=== PATIENT | female | born 1990 | race Caucasian/White ===

== ENCOUNTER 2021-07-17 01:08 | Inpatient (IN) | payer MEDICAID ==
[2021-07-17] MEDS ORDERED: Scopolamine 1.5 MG Transdermal Patch TOP SCH (05:30)
[2021-07-17] MEDS ORDERED: Acetaminophen 500 MG Tab PO ONE (05:30)
[2021-07-17] MEDS ORDERED: Celecoxib 200 MG Cap PO SCH (05:30)
[2021-07-17] MEDS ORDERED: Dextrose 5%-Lactated Ringers 1,000 ML IV SCH (06:15)
[2021-07-17] MEDS ORDERED: cefOXitin 2 GM Vial ONE (06:40)
[2021-07-17] MEDS ORDERED: fentaNYL 250 MCG/5 ML SDV ONE ×2 (07:00→07:46)
[2021-07-17] MEDS ORDERED: Neostigmine Methylsulfate 1 MG/ML 5 ML Syringe ONE (07:01)
[2021-07-17] MEDS ORDERED: Ondansetron 4 MG/2 ML SDV ONE (07:01)
[2021-07-17] MEDS ORDERED: Dexamethasone 4 MG/ML SDV ONE (07:01)
[2021-07-17] MEDS ORDERED: Succinylcholine 200 MG/10 ML MDV ONE (07:01)
[2021-07-17] MEDS ORDERED: Glycopyrrolate 0.2 MG/ML 5 ML MDV ONE (07:01)
[2021-07-17] MEDS ORDERED: Rocuronium 50 MG/5 ML Vial ONE (07:01)
[2021-07-17] MEDS ORDERED: Propofol 200 MG/20 ML SDV ONE (07:01)
[2021-07-17] MEDS ORDERED: Lactated Ringers 1,000 ML ONE (07:06)
[2021-07-17] MEDS ORDERED: cefOXitin 2 GM in Sodium Chloride 0.9% 50 ML IV ONE (07:15)
[2021-07-17] MEDS ORDERED: Ketamine 500 MG/5 ML MDV IV SCH (07:30)
[2021-07-17] MEDS ORDERED: Ketamine 18 MG in Sodium Chloride 0.9% 19.82 ML IV SCH (07:30)
[2021-07-17] MEDS ORDERED: Labetalol 20 MG/4 ML Syringe ONE (07:58)
[2021-07-17] MEDS ORDERED: Ondansetron 4 MG/2 ML SDV IVPUSH ONE (09:20)
[2021-07-17] MEDS ORDERED: Cyclobenzaprine 10 MG Tab PO PRN (10:12)
[2021-07-17] MEDS: hydrOXYzine HCL 100 MG/2 ML SDV IM PRN ×2 (10:24→19:38)
[2021-07-17] MEDS: Metoclopramide 10 MG/2 ML SDV IVPUSH PRN ×2 (10:28→20:04)
[2021-07-17] MEDS ORDERED: Acetaminophen 500 MG Tab PO PRN (11:00)
[2021-07-17] MEDS ORDERED: oxyCODONE 5 MG Tab PO PRN (11:00)
[2021-07-17] MEDS ORDERED: HYDROmorphone 0.5 MG/0.5 ML Syringe IVPUSH PRN (11:00)
[2021-07-17] MEDS ORDERED: Labetalol 20 MG/4 ML Syringe IVPUSH PRN (11:00)
[2021-07-17] MEDS ORDERED: diphenhydrAMINE 50 MG/ML SDV IVPUSH PRN (11:00)
[2021-07-17] MEDS: HYDROmorphone 1 MG/ML Syringe IV PRN ×2 (11:17→15:22)
[2021-07-17] MEDS: Dextrose 5%-Lactated Ringers 1,000 ML IV SCH (12:12)
[2021-07-17] MEDS: cefOXitin 2 GM in Sodium Chloride 0.9% 50 ML IV SCH ×2 (13:21→20:04)
[2021-07-17] MEDS: Acetaminophen 500 MG Tab PO SCH ×2 (13:21→21:52)
[2021-07-17] MEDS: Sertraline 25 MG Tab PO SCH (13:21)
[2021-07-17] MEDS: Pantoprazole 40 MG Vial IVPUSH SCH (13:21)
[2021-07-17] MEDS: Ondansetron 4 MG/2 ML SDV IVPUSH PRN ×2 (15:23→19:21)
[2021-07-17] MEDS: MVI, Adult with Vitamin K 10 ML, Thiamine 200 MG, Zinc/Copper/Manganese/Selenium 1 ML i... IV SCH ×4 (15:25)
[2021-07-17] MEDS: Heparin Sodium 5,000 Units/ML Vial SUBCUT SCH (18:11)
[2021-07-17] MEDS: traMADol 50 MG Tab PO PRN (21:54)
[2021-07-18] MEDS: Dextrose 5%-Lactated Ringers 1,000 ML IV SCH ×2 (00:13→07:46)
[2021-07-18] MEDS: cefOXitin 2 GM in Sodium Chloride 0.9% 50 ML IV SCH ×3 (01:32→14:22)
[2021-07-18] MEDS ORDERED: Iopamidol 612 MG/ML 50 ML SDV PO ONE (03:52)
[2021-07-18] MEDS: traMADol 50 MG Tab PO PRN ×2 (04:24→15:19)
[2021-07-18] MEDS: Heparin Sodium 5,000 Units/ML Vial SUBCUT SCH ×2 (05:01→18:46)
[2021-07-18] MEDS: Acetaminophen 500 MG Tab PO SCH ×3 (05:44→21:18)
[2021-07-18] MEDS: SCOPOLAMINE PATCH CHECK TOP SCH (08:43)
[2021-07-18] MEDS: Sertraline 25 MG Tab PO SCH (08:43)
[2021-07-18] MEDS: Celecoxib 200 MG Cap PO SCH ×2 (08:43→21:18)
[2021-07-18] MEDS: Pantoprazole 40 MG Vial IVPUSH SCH (14:27)
[2021-07-18] MEDS: MVI, Adult with Vitamin K 10 ML, Thiamine 200 MG, Zinc/Copper/Manganese/Selenium 1 ML i... IV SCH ×4 (15:16)
[2021-07-19] MEDS: Dextrose 5%-Lactated Ringers 1,000 ML IV SCH (01:24)
[2021-07-19] MEDS: traMADol 50 MG Tab PO PRN ×2 (03:14→08:58)
[2021-07-19] MEDS: Acetaminophen 500 MG Tab PO SCH ×2 (05:31→14:11)
[2021-07-19] MEDS: Heparin Sodium 5,000 Units/ML Vial SUBCUT SCH (05:31)
[2021-07-19] MEDS: SCOPOLAMINE PATCH CHECK TOP SCH (08:54)
[2021-07-19] MEDS: Celecoxib 200 MG Cap PO SCH (08:54)
[2021-07-19] MEDS ORDERED: Cyanocobalamin (Vitamin B12) 1,000 MCG/ML SDV IM ONE (09:00)
[2021-07-19] MEDS: Sertraline 25 MG Tab PO SCH (09:01)
[2021-07-19] MEDS: Pantoprazole 40 MG Vial IVPUSH SCH (14:06)
== END 2021-07-19 14:05 | disposition home or self-care (01) | DRG 619 ==
LOC: JP.SDS 05:12 → JP.SDSSCHI 05:12 → EDSTATUS 07:15 → JP.MS 09:10
PROVIDERS: ADMIT Surgery; ATTEND Surgery
PROC: 0D164ZA Bypass Stomach to Jejunum, Percutaneous Endoscopic Approach (ICD-10-PCS; principal; 2021-07-17)
PROC: 0FB24ZX Excision of Left Lobe Liver, Percutaneous Endoscopic Approach, Diagnostic (ICD-10-PCS; 2021-07-17)
PROC: 0BQT4ZZ Repair Diaphragm, Percutaneous Endoscopic Approach (ICD-10-PCS; 2021-07-17)
PROC: 0DB64ZZ Excision of Stomach, Percutaneous Endoscopic Approach (ICD-10-PCS; 2021-07-17)
DX: E66.01 Morbid (severe) obesity due to excess calories (principal); K55.051 Focal (segmental) acute (reversible) ischemia of intestine, part unspecified; Z68.41 Body mass index [BMI] 40.0-44.9, adult; R16.0 Hepatomegaly, not elsewhere classified; K44.9 Diaphragmatic hernia without obstruction or gangrene; F32.A Depression, unspecified; F41.0 Panic disorder [episodic paroxysmal anxiety]; Z79.899 Other long term (current) drug therapy
CPT/HCPCS: 36415; 74240; 74240-26; 82947; 84703; 86850; 86900; 86901; 88305; 88307; 88313; A9270-GY; C9113; J0171; J0330; J0694; J1100; J1170; J1644; J2405; J2704; J2710; J2765; J2795; J3010; J3410; J3411; J3420; J3490; J7030; J7120; J7121; Q9967

== ENCOUNTER 2021-09-08 06:56 | Day surgery (SDC) | payer MEDICAID ==
[2021-09-08] MEDS ORDERED: Propofol 200 MG/20 ML SDV ONE (07:04)
[2021-09-08] MEDS ORDERED: fentaNYL 100 MCG/2 ML SDV ONE (07:04)
[2021-09-08] MEDS ORDERED: Midazolam 1 MG/ML 2 ML SDV ONE (07:04)
[2021-09-08] MEDS ORDERED: Dextrose 5%-Lactated Ringers 1,000 ML IV SCH (07:30)
[2021-09-08] MEDS ORDERED: Scopolamine 1.5 MG Transdermal Patch TOP SCH (07:30)
[2021-09-08] MEDS ORDERED: Lactated Ringers 1,000 ML IV ONE (07:49)
[2021-09-08] MEDS: Glycopyrrolate 0.2 MG/ML 2 ML SDV IVPUSH ONE ×2 (08:09→08:10)
[2021-09-08] MEDS ORDERED: MVI, Adult with Vitamin K 10 ML, Zinc/Copper/Manganese/Selenium 1 ML, Thiamine 200 MG i... IV ONE ×4 (08:30)
[2021-09-08] MEDS ORDERED: Cyanocobalamin (Vitamin B12) 1,000 MCG/ML SDV IM ONE (08:30)
[2021-09-08] MEDS: Potassium Phos in 0.9 % NaCl 15 MMOL in Premix Bag 1 BAG IV SCH ×6 (09:00→13:10)
== END 2021-09-08 15:30 | disposition home or self-care (01) ==
LOC: JP.SDS 06:56
PROVIDERS: ATTEND Surgery
DX: K91.89 Other postprocedural complications and disorders of digestive system (principal); R13.10 Dysphagia, unspecified
CPT/HCPCS: 36415; 43245; 80053; 81025; 85027; A9270; J2250; J2704; J3010; J3411; J3420; J3490; J7120

== ENCOUNTER 2021-12-12 06:26 | Inpatient (IN) | payer MEDICAID ==
[2021-12-12] MEDS ORDERED: Scopolamine 1.5 MG Transdermal Patch TOP SCH (07:00)
[2021-12-12] MEDS ORDERED: Acetaminophen 500 MG Tab PO ONE (07:00)
[2021-12-12] MEDS ORDERED: Celecoxib 200 MG Cap PO ONE (07:00)
[2021-12-12] MEDS ORDERED: Rocuronium 50 MG/5 ML Vial ONE (07:21)
[2021-12-12] MEDS ORDERED: Glycopyrrolate 0.2 MG/ML 5 ML MDV ONE (07:21)
[2021-12-12] MEDS ORDERED: Ondansetron 4 MG/2 ML SDV ONE (07:21)
[2021-12-12] MEDS ORDERED: Dexamethasone 4 MG/ML SDV ONE (07:21)
[2021-12-12] MEDS ORDERED: Propofol 200 MG/20 ML SDV ONE (07:21)
[2021-12-12] MEDS ORDERED: fentaNYL 250 MCG/5 ML SDV ONE (07:21)
[2021-12-12] MEDS ORDERED: Neostigmine Methylsulfate 1 MG/ML 5 ML Syringe ONE (07:21)
[2021-12-12] MEDS ORDERED: Succinylcholine 200 MG/10 ML MDV ONE (07:21)
[2021-12-12 07:34] LABS: ESTIMATED GFR 70 mL/min (>60)
[2021-12-12] MEDS ORDERED: cefOXitin 2 GM in Sodium Chloride 0.9% 50 ML IV ONE (08:00)
[2021-12-12] MEDS: Dextrose 5%-Lactated Ringers 1,000 ML IV SCH ×2 (08:21→16:00)
[2021-12-12] MEDS ORDERED: Ketamine 500 MG/5 ML MDV IV SCH (08:45)
[2021-12-12] MEDS ORDERED: Ropivacaine 36 ML, dexAMETHasone 8 MG, EPINEPHrine 0.4 MG, Sodium Chloride 0.9% 41.6 ML NERVRT SCH ×4 (08:45)
[2021-12-12] MEDS ORDERED: Ketamine 17 MG in Sodium Chloride 0.9% 19.83 ML IV SCH (08:45)
[2021-12-12] MEDS: Bupivacaine 0.5%/EPINEPHrine 1:200,000 50 ML MDV ONE ×2 (09:22→09:34)
[2021-12-12] MEDS ORDERED: Lidocaine 1% 20 ML MDV ONE (09:24)
[2021-12-12] MEDS ORDERED: fentaNYL 50 MCG/ML SDV IVPUSH ONE (10:08)
[2021-12-12] MEDS ORDERED: hydrOXYzine HCL 100 MG/2 ML SDV IM ONE (10:08)
[2021-12-12] MEDS ORDERED: Sertraline 25 MG Tab PO ONE (11:00)
[2021-12-12] MEDS: HYDROmorphone 2 MG Tab PO PRN ×3 (11:07→21:35)
[2021-12-12] MEDS ORDERED: Ondansetron 4 MG/2 ML SDV IVPUSH PRN (12:10)
[2021-12-12] MEDS ORDERED: MVI, Adult with Vitamin K 10 ML, Thiamine 200 MG, Zinc/Copper/Manganese/Selenium 1 ML i... IV ONE ×4 (13:00)
[2021-12-12] MEDS: Pantoprazole 40 MG Vial IVPUSH SCH (13:14)
[2021-12-12] MEDS: Cholecalciferol (Vitamin D3) 50,000 Unit Cap PO SCH (17:11)
[2021-12-12] MEDS: Cyanocobalamin (Vitamin B12) 1,000 MCG Tab PO SCH (17:13)
[2021-12-13] MEDS: HYDROmorphone 2 MG Tab PO PRN ×5 (01:13→23:24)
[2021-12-13] MEDS: Dextrose 5%-Lactated Ringers 1,000 ML IV SCH ×2 (01:27→19:30)
[2021-12-13] MEDS: Cyanocobalamin (Vitamin B12) 1,000 MCG Tab PO SCH (09:56)
[2021-12-13] MEDS: Sertraline 50 MG Tab PO SCH (09:57)
[2021-12-13] MEDS: VERIFY SCOP PATCH TOP SCH (09:59)
[2021-12-13] MEDS ORDERED: LACTATED RINGERS IV SCH (11:30)
[2021-12-13] MEDS ORDERED: MVI, Adult with Vitamin K 10 ML, Zinc/Copper/Manganese/Selenium 1 ML in Lactated Ringer... IV SCH ×3 (11:30)
[2021-12-13] MEDS ORDERED: DEXTROSE IV SCH (11:30)
[2021-12-13] MEDS ORDERED: POTASSIUM PHOSPHATES IV SCH (11:30)
[2021-12-13] MEDS: Magnesium Sulfate/Water 2 GM in Premix Bag 1 BAG IV SCH ×3 (12:35→23:24)
[2021-12-13] MEDS: Potassium Phos in 0.9 % NaCl 15 MMOL in Premix Bag 1 BAG IV SCH ×8 (12:43→21:52)
[2021-12-13] MEDS: Pantoprazole 40 MG Vial IVPUSH SCH (12:45)
[2021-12-13] MEDS ORDERED: Dextrose 5%-Lactated Ringers 1,000 ML IV SCH (13:45)
[2021-12-13] MEDS ORDERED: Tamsulosin 0.4 MG Cap.ER PO ONE (16:55)
[2021-12-13] MEDS ORDERED: Lactated Ringers 500 ML IV ONE (18:19)
[2021-12-13] MEDS: Tamsulosin 0.4 MG Cap.ER PO SCH (21:51)
[2021-12-14] MEDS: Dextrose 5%-Lactated Ringers 1,000 ML IV SCH ×3 (03:01→21:08)
[2021-12-14 05:23] LABS: ESTIMATED GFR 102 mL/min (>60)
[2021-12-14] MEDS: Magnesium Sulfate/Water 2 GM in Premix Bag 1 BAG IV SCH ×4 (06:07→23:56)
[2021-12-14] MEDS: HYDROmorphone 2 MG Tab PO PRN ×3 (07:29→21:11)
[2021-12-14] MEDS: Potassium Chloride 20 MEQ, Lidocaine 1% 2 ML in Sodium Chloride 0.9% 100 ML IV SCH ×3 (09:51→16:51)
[2021-12-14] MEDS: Docusate Sodium 100 MG Cap PO SCH ×2 (09:56→21:09)
[2021-12-14] MEDS: VERIFY SCOP PATCH TOP SCH ×2 (09:56→10:33)
[2021-12-14] MEDS: Cyanocobalamin (Vitamin B12) 1,000 MCG Tab PO SCH (09:56)
[2021-12-14] MEDS: Bisacodyl 5 MG Tab PO SCH ×3 (09:56→21:13)
[2021-12-14] MEDS: Sertraline 50 MG Tab PO SCH (09:57)
[2021-12-14] MEDS: Pantoprazole 40 MG Vial IVPUSH SCH (12:39)
[2021-12-14] MEDS: Cholecalciferol (Vitamin D3) 50,000 Unit Cap PO SCH (16:53)
[2021-12-14] MEDS: Tamsulosin 0.4 MG Cap.ER PO SCH (21:09)
[2021-12-15] MEDS: Dextrose 5%-Lactated Ringers 1,000 ML IV SCH ×3 (05:11→20:25)
[2021-12-15] MEDS: Magnesium Sulfate/Water 2 GM in Premix Bag 1 BAG IV SCH ×4 (05:12→23:16)
[2021-12-15] MEDS: HYDROmorphone 2 MG Tab PO PRN ×3 (05:16→19:43)
[2021-12-15 05:28] LABS: ESTIMATED GFR 130 mL/min (>60)
[2021-12-15] MEDS ORDERED: Potassium Chloride 20 MEQ in Premix Bag 1 BAG IV ONE (05:57)
[2021-12-15] MEDS ORDERED: Lidocaine 1% 5 ML VIAL INJECT ONE (05:58)
[2021-12-15] MEDS ORDERED: Scopolamine 1.5 MG Transdermal Patch TOP PRN (07:00)
[2021-12-15] MEDS: Ondansetron 4 MG Tab.DIS PO PRN ×2 (07:47→16:10)
[2021-12-15] MEDS ORDERED: Potassium Acetate 20 MEQ in Sodium Chloride 0.9% 150 ML IV ONE (08:00)
[2021-12-15] MEDS: Docusate Sodium 100 MG Cap PO SCH ×2 (09:03→20:25)
[2021-12-15] MEDS: Cyanocobalamin (Vitamin B12) 1,000 MCG Tab PO SCH (09:03)
[2021-12-15] MEDS: Sertraline 25 MG Tab PO SCH (09:03)
[2021-12-15] MEDS: Sertraline 50 MG Tab PO SCH (09:03)
[2021-12-15] MEDS: Bisacodyl 5 MG Tab PO SCH ×2 (09:05→20:28)
[2021-12-15] MEDS: VERIFY SCOP PATCH TOP SCH (09:21)
[2021-12-15] MEDS ORDERED: Potassium Chloride 20 MEQ, Lidocaine 1% 2 ML in Sodium Chloride 0.9% 100 ML IV SCH (10:00)
[2021-12-15] MEDS ORDERED: Potassium Chloride 20 MEQ, Lidocaine 1% 2 ML in Sodium Chloride 0.9% 100 ML IV ONE (11:00)
[2021-12-15] MEDS: Pantoprazole 40 MG Tab.CR PO SCH (13:11)
[2021-12-15] MEDS: Tamsulosin 0.4 MG Cap.ER PO SCH (20:25)
[2021-12-16] MEDS: Dextrose 5%-Lactated Ringers 1,000 ML IV SCH (04:28)
[2021-12-16 05:17] LABS: ESTIMATED GFR 130 mL/min (>60)
[2021-12-16] MEDS: Magnesium Sulfate/Water 2 GM in Premix Bag 1 BAG IV SCH (05:35)
[2021-12-16] MEDS: Pantoprazole 40 MG Tab.CR PO SCH (07:42)
[2021-12-16] MEDS: HYDROmorphone 2 MG Tab PO PRN (07:44)
[2021-12-16] MEDS: Potassium Chloride 20 MEQ, Lidocaine 1% 2 ML in Sodium Chloride 0.9% 100 ML IV SCH ×2 (08:36→10:57)
[2021-12-16] MEDS: Docusate Sodium 100 MG Cap PO SCH (08:50)
[2021-12-16] MEDS: Bisacodyl 5 MG Tab PO SCH (08:50)
[2021-12-16] MEDS: VERIFY SCOP PATCH TOP SCH (08:50)
[2021-12-16] MEDS: Sertraline 25 MG Tab PO SCH (08:50)
[2021-12-16] MEDS: Cyanocobalamin (Vitamin B12) 1,000 MCG Tab PO SCH (08:50)
[2021-12-16] MEDS: Sertraline 50 MG Tab PO SCH (08:50)
[2021-12-16] MEDS: Ondansetron 4 MG Tab.DIS PO PRN (13:18)
== END 2021-12-16 14:00 | disposition home or self-care (01) | DRG 418 ==
LOC: JP.SDS 06:26 → JP.ICU 12:07 → JP.SDS 12-14 08:52 → JP.ICU 12-14 08:52
PROVIDERS: ADMIT Surgery; ATTEND Surgery
PROC: 0FT44ZZ Resection of Gallbladder, Percutaneous Endoscopic Approach (ICD-10-PCS; principal; 2021-12-12)
PROC: 0WQF4ZZ Repair Abdominal Wall, Percutaneous Endoscopic Approach (ICD-10-PCS; 2021-12-12)
DX: K82.8 Other specified diseases of gallbladder (principal); K43.0 Incisional hernia with obstruction, without gangrene; D69.6 Thrombocytopenia, unspecified; E87.6 Hypokalemia; D72.819 Decreased white blood cell count, unspecified; F32.A Depression, unspecified; F41.0 Panic disorder [episodic paroxysmal anxiety]; E66.9 Obesity, unspecified; F41.1 Generalized anxiety disorder; K59.09 Other constipation; E55.9 Vitamin D deficiency, unspecified; E66.01 Morbid (severe) obesity due to excess calories; Z79.899 Other long term (current) drug therapy; Z68.25 Body mass index [BMI] 25.0-25.9, adult
CPT/HCPCS: 36415; 80053; 81025; 82728; 83735; 84100; 84443; 85025; 85027; 88304; A9270-GY; C9113; J0171; J0330; J0694; J1100; J1790; J2405; J2704; J2710; J2795; J3010; J3410; J3411; J3475; J3480; J3490; J7120; J7121; Q0162